=== PATIENT | female | born 1985 | race Caucasian/White ===

== ENCOUNTER 2016-11-12 17:59 | Emergency (ER) | payer MEDICARE ==
--- NOTE | 2016-11-12 18:48 | ER Document Report ---
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 Is here to get Ca level checked and possible replacement Past Medical History - Social History Chew tobacco use (# tins/day): No Frequency of alcohol use: None Drug Abuse: None Renal/ Medical History: Reports: Hx Peritoneal Dialysis - Immunizations Hx Diphtheria, Pertussis, Tetanus Vaccination: No
[2016-11-12 19:20] LABS: ABSOLUTE EOSINOPHILS # (AUTO) 0.1 10^3/uL (0.0-0.6); ABSOLUTE LYMPHOCYTES (AUTO) 0.6 10^3/uL (0.5-4.7); ABSOLUTE MONOCYTES (AUTO) 0.6 10^3/uL (0.1-1.4); ABSOLUTE NEUT (AUTO) 5.1 10^3/uL (1.7-8.2); BASOPHILS % (AUTO) 0.8 % (0-2); EOSINOPHILS % (AUTO) 1.8 % (0-6); HEMATOCRIT 33.6 % (36.0-47.0); HEMOGLOBIN 11.8 g/dL (12.0-15.5); HGB HCT DIFFERENCE 1.8; LYMPHOCYTES % (AUTO) 8.9 % (13-45); MEAN CORPUSCULAR HEMOGLOBIN 35.2 pg (27.0-33.4); MEAN CORPUSCULAR VOLUME 100 fl (80-97); MONOCYTES % (AUTO) 8.8 % (3-13); RED BLOOD COUNT 3.35 10^6/uL (3.72-5.28); SEGMENTED NEUTROPHILS % (AUTO) 79.7 % (42-78); WHITE BLOOD COUNT 6.3 10^3/uL (4.0-10.5)
[2016-11-12 19:39] LABS: ALANINE AMINOTRANSFERASE 26 U/L (9-52); ALBUMIN 4.4 g/dL (3.5-5.0); ALKALINE PHOSPHATASE 53 U/L (38-126); ANION GAP 16 (5-19); ASPARTATE AMINO TRANSFERASE 16 U/L (14-36); BILIRUBIN,DIRECT 0.6 mg/dL (0.0-0.4); BILIRUBIN,TOTAL 0.6 mg/dL (0.2-1.3); BLOOD UREA NITROGEN 55 mg/dL (7-20); CALCIUM 7.6 mg/dL (8.4-10.2); CARBON DIOXIDE 26 mmol/L (22-30); CHLORIDE 97 mmol/L (98-107); CREATININE RESULT 10.86 mg/dL (0.52-1.25); GLUCOSE 103 mg/dL (75-110); MAGNESIUM 1.6 mg/dL (1.6-2.3); POTASSIUM 4.8 mmol/L (3.6-5.0); SODIUM 139.4 mmol/L (137-145); TOTAL PROTEIN 6.8 g/dL (6.3-8.2)
--- NOTE | 2016-11-12 20:16 | EKG REPORT ---
SEVERITY:- ABNORMAL ECG - SINUS RHYTHM BORDERLINE Q WAVES IN INFERIOR LEADS INFERIOR Q WAVES, PROBABLY NORMAL VARIATION BORDERLINE PROLONGED QT INTERVAL : Confirmed by: Bindu Mariano 12-Nov-2016 20:15:34
[2016-11-12] MEDS ORDERED: CALCIUM GLUCONATE 1000 MG/10 ML INJ IV ONE (20:32)
--- NOTE | 2016-11-12 21:27 | ER Document Report ---
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 Patient reports that for the past 3-4 days she has had facial paresthesias as well as tinnitus. She has had the symptoms in the past of hypocalcemia. She has not noted that anything worsens her symptoms. She does take calcium and vitamin D supplements but states when she recently moved to the area her IV calcitriol was discontinued as apparently this is not provided at [facility] dialysis. She has spoken to her vp revenue cycle regarding today's concerns and was instructed to come to the emergency department if her symptoms were bothersome. When she has had the symptoms in the past she typically receives IV calcium with complete resolution. Her initial cause of hypercalcemia is apparently secondary to a parathyroidectomy and the parathyroid graft to her forearm not successfully taking. She denies any additional concerns. Past Medical History - General Information source: Patient - Social History Smoking Status: Never Smoker Chew tobacco use (# tins/day): No Frequency of alcohol use: None Drug Abuse: None Lives with: Spouse/Significant other Family History: Reviewed & Not Pertinent Renal/ Medical History: Reports: Hx Peritoneal Dialysis - Immunizations Hx Diphtheria, Pertussis, Tetanus Vaccination: No Review of Systems - Review of Systems Notes: Constitutional: Negative for fever. HENT: Negative for sore throat. Eyes: Negative for visual changes. Cardiovascular: Negative for chest pain. Respiratory: Negative for shortness of breath. Gastrointestinal: Negative for abdominal pain, vomiting or diarrhea. Genitourinary: Negative for dysuria. Musculoskeletal: Negative for back pain. Skin: Negative for rash. Neurological: Negative for headaches, weakness or numbness. 10 point ROS negative except as marked above and in HPI. Physical Exam - Vital signs Vitals: Resp BP Pulse Ox 22 H 147/76 H 100 11/12/16 21:26 11/12/16 21:26 11/12/16 21:26 Interpretation: Normal Notes: PHYSICAL EXAMINATION: GENERAL: Well-appearing, well-nourished and in no acute distress. HEAD: Atraumatic, normocephalic. EYES: Pupils equal round and reactive to light, extraocular movements intact, sclera anicteric, conjunctiva are normal. ENT: nares patent, oropharynx clear without exudates. Moist mucous membranes. NECK: Normal range of motion, supple without lymphadenopathy LUNGS: Breath sounds clear to auscultation bilaterally and equal. No wheezes rales or rhonchi. HEART: Regular rate and rhythm without murmurs ABDOMEN: Soft, nontender, normoactive bowel sounds. No guarding, no rebound. No masses appreciated. EXTREMITIES: Normal range of motion, no pitting or edema. No cyanosis. NEUROLOGICAL: No focal neurological deficits. Moves all extremities spontaneously and on command. PSYCH: Normal mood, normal affect. SKIN: Warm, Dry, normal turgor, no rashes or lesions noted. Course - Re-evaluation Re-evalutation: 11/12/16 21:24 Patient presents with paresthesias in her facial area which she reports is when she has mild hypocalcemia, of which she has a chronic history. Apparently when she recently moved to the area her IV calcitriol was discontinued as apparently this is not done at [facility]. She does continue take vitamin D and calcium supplements at home. She is followed by a vp revenue cycle, Dr. Dalal. She denies any additional complaints or concerns. The remainder was her labs is consistent with chronic kidney disease. Potassium level is normal. No focal neurologic deficits on examination. She has had resolution of her symptoms after administration of 2 g of calcium gluconate IV. At this time will discharge with return precautions and follow-up recommendations. Verbal discharge instructions given a the bedside and opportunity for questions given. Medication warnings reviewed. Patient is in agreement with this plan and has verbalized understanding of return precautions and the need for primary care follow-up in the next 24-72 hours. - Vital Signs Vital signs: Temp Pulse Resp BP Pulse Ox 18 126/82 H 100 11/12/16 23:45 11/12/16 23:45 11/12/16 23:45 - Laboratory Result Diagrams: 11/12/16 19:07 11/12/16 19:07 Laboratory results interpreted by me: 11/12/16 11/12/16 19:07 19:07 RBC 3.35 L Hgb 11.8 L Hct 33.6 L MCV 100 H MCH 35.2 H RDW 15.0 H Seg Neutrophils % 79.7 H Lymphocytes % 8.9 L Chloride 97 L BUN 55 H Creatinine 10.86 H Est GFR ( Amer) 5 L Est GFR (Non-Af Amer) 4 L Calcium 7.6 L Direct Bilirubin 0.6 H Discharge - Discharge Clinical Impression: Hypocalcemia, Paresthesias Condition: Good Disposition: HOME, SELF-CARE Additional Instructions: Please return to the emergency room immediately if you experience any concerning symptoms including high fevers, severe headache, chest pain, difficulty breathing, abdominal pain, slurred speech, numbness or weakness in your arms or legs, or any other symptom that concerns you.
[2016-11-12 23:50] VITALS: BP 126/82
== END 2016-11-12 23:50 | disposition home or self-care (01) ==
LOC: ER 17:59
DX: E83.51 Hypocalcemia (principal); R20.9 Unspecified disturbances of skin sensation; R42 Dizziness and giddiness; N18.9 Chronic kidney disease, unspecified; Z99.2 Dependence on renal dialysis
CPT/HCPCS: 93005; 99284; 96365; 36415; 83735; 85025; 80053; 93010; J0610

== ENCOUNTER 2017-01-30 17:50 | Emergency (ER) | payer MEDICARE ==
[2017-01-30 18:09] VITALS: BP 131/77
--- NOTE | 2017-01-30 18:29 | ER Document Report ---
ED Medical Screen (RME) - General Chief Complaint: Chest Pain Stated Complaint: CHEST PAIN Time Seen by Provider: 01/30/17 18:22 Mode of Arrival: Wheelchair Information source: Patient TRAVEL OUTSIDE OF THE [place] IN LAST 30 DAYS: No - HPI Patient complains to provider of: palpitations Onset: This afternoon - pt. states she was lying in bed earlier this afternoon when she felt her heart rate increasing. She had a brief episode of CP with this. She states this has happened in the past but never has lasted this long. Denies SOB - Related Data Allergies/Adverse Reactions: cefazolin Allergy (Verified 01/30/17 17:53) Home Medications: Current Home Medications Diltiazem HCl [Diltiazem 24Hr ER] 1 tab PO DAILY 01/30/17 [History] Metoprolol Succinate [Toprol Xl] 50 mg PO DAILY 01/30/17 [History] Promethazine HCl 12.5 mg PO ASDIR PRN 01/30/17 [History] Past Medical History - Social History Chew tobacco use (# tins/day): No Frequency of alcohol use: None Drug Abuse: None Renal/ Medical History: Denies: Hx Peritoneal Dialysis - Immunizations Hx Diphtheria, Pertussis, Tetanus Vaccination: No Physical Exam - Vital signs Vitals: Temp Pulse Resp BP Pulse Ox 97.6 F 122 H 28 H 131/77 H 97 01/30/17 18:09 01/30/17 18:09 01/30/17 18:09 01/30/17 18:09 01/30/17 18:09 Course - Vital Signs Vital signs: Temp Pulse Resp BP Pulse Ox 97.6 F 122 H 28 H 131/77 H 97 01/30/17 18:09 01/30/17 18:09 01/30/17 18:09 01/30/17 18:09 01/30/17 18:09
[2017-01-30 19:02] LABS: ABSOLUTE BASOPHILS # (AUTO) 0.1 10^3/uL (0.0-0.2); ABSOLUTE EOSINOPHILS # (AUTO) 0.1 10^3/uL (0.0-0.6); ABSOLUTE LYMPHOCYTES (AUTO) 0.6 10^3/uL (0.5-4.7); ABSOLUTE MONOCYTES (AUTO) 0.6 10^3/uL (0.1-1.4); ABSOLUTE NEUT (AUTO) 5.2 10^3/uL (1.7-8.2); BASOPHILS % (AUTO) 1.1 % (0-2); EOSINOPHILS % (AUTO) 1.4 % (0-6); HEMATOCRIT 35.5 % (36.0-47.0); HEMOGLOBIN 12.3 g/dL (12.0-15.5); HGB HCT DIFFERENCE 1.4; LYMPHOCYTES % (AUTO) 9.3 % (13-45); MEAN CORPUSCULAR HEMOGLOBIN 34.1 pg (27.0-33.4); MEAN CORPUSCULAR HGB CONC 34.7 g/dL (32.0-36.0); MEAN CORPUSCULAR VOLUME 98 fl (80-97); MONOCYTES % (AUTO) 9.7 % (3-13); RED BLOOD COUNT 3.62 10^6/uL (3.72-5.28); RED CELL DISTRIBUTION WIDTH 13.3 % (11.5-14.0); SEGMENTED NEUTROPHILS % (AUTO) 78.5 % (42-78); WHITE BLOOD COUNT 6.6 10^3/uL (4.0-10.5)
--- NOTE | 2017-01-30 19:14 | RADIOLOGY REPORT (SQ) ---
EXAM DESCRIPTION: CHEST PA/LAT COMPLETED DATE/TIME: 01/30/2017 6:59 pm REASON FOR STUDY: palpitations COMPARISON: None. EXAM PARAMETERS: NUMBER OF VIEWS: two views TECHNIQUE: Digital Frontal and Lateral radiographic views of the chest acquired. RADIATION DOSE: NA LIMITATIONS: none FINDINGS: LUNGS AND PLEURA: No opacities, masses or pneumothorax. No pleural effusion. MEDIASTINUM AND HILAR STRUCTURES: No masses or contour abnormalities. HEART AND VASCULAR STRUCTURES: Heart normal size. No evidence for failure. BONES: No acute findings. HARDWARE: Vascular coiling is seen within a right suprahilar position. OTHER: No other significant finding. IMPRESSION: No evidence of acute cardiopulmonary abnormality. Right suprahilar vascular coiling. TECHNICAL DOCUMENTATION: JOB ID: [id number] JA[employer]- All Rights Reserved
[2017-01-30 19:27] LABS: ALANINE AMINOTRANSFERASE 32 U/L (9-52); ALBUMIN 4.1 g/dL (3.5-5.0); ALKALINE PHOSPHATASE 58 U/L (38-126); ANION GAP 16 (5-19); ASPARTATE AMINO TRANSFERASE 20 U/L (14-36); BILIRUBIN,DIRECT 0.6 mg/dL (0.0-0.4); BILIRUBIN,TOTAL 0.6 mg/dL (0.2-1.3); BLOOD UREA NITROGEN 29 mg/dL (7-20); CALCIUM 7.8 mg/dL (8.4-10.2); CARBON DIOXIDE 25 mmol/L (22-30); CHLORIDE 99 mmol/L (98-107); CREATINE KINASE 118 U/L (30-135); CREATININE RESULT 6.31 mg/dL (0.52-1.25); GLUCOSE 90 mg/dL (75-110); SODIUM 140.1 mmol/L (137-145); TOTAL PROTEIN 6.6 g/dL (6.3-8.2)
[2017-01-30 19:39] LABS: CREATINE KINASE MB 0.51 ng/mL (<4.55); TROPONIN I 0.02 ng/mL
--- NOTE | 2017-01-31 09:43 | EKG REPORT ---
SEVERITY:- ABNORMAL ECG - SINUS TACHYCARDIA BORDERLINE T ABNORMALITIES, INFERIOR LEADS PROLONGED QT INTERVAL : Confirmed by: Marques Fregoso MD 31-Jan-2017 09:42:41
== END 2017-01-30 19:30 | disposition left against medical advice (07) ==
LOC: ER 17:50
DX: R07.9 Chest pain, unspecified (principal); R00.2 Palpitations; Z88.1 Allergy status to other antibiotic agents; Z53.20 Procedure and treatment not carried out because of patient's decision for unspecified reasons
CPT/HCPCS: 36415; 71020; 80053; 82550; 82553; 84443; 84484; 84703; 85025; 93005; 93010; 99281